=== PATIENT | male | born 1980 | race Caucasian/White ===

== ENCOUNTER 2018-11-08 11:16 | Emergency (ER) | payer OTHER ==
[2018-11-08 13:03] LABS: ABSOLUTE EOSINOPHILS # (AUTO) 0.2 10^3/uL (0.0-0.6); ABSOLUTE LYMPHOCYTES (AUTO) 2.4 10^3/uL (0.5-4.7); ABSOLUTE MONOCYTES (AUTO) 0.6 10^3/uL (0.1-1.4); ABSOLUTE NEUT (AUTO) 4.9 10^3/uL (1.7-8.2); BASOPHILS % (AUTO) 0.6 % (0-2); EOSINOPHILS % (AUTO) 2.1 % (0-6); HEMATOCRIT 49.2 % (37.9-51.0); HEMOGLOBIN 16.7 g/dL (13.5-17.0); LYMPHOCYTES % (AUTO) 29.5 % (13-45); MEAN CORPUSCULAR HEMOGLOBIN 30.3 pg (27.0-33.4); MEAN CORPUSCULAR VOLUME 89 fl (80-97); MONOCYTES % (AUTO) 7.4 % (3-13); PLATELET COUNT 279 10^3/uL (150-450); RED BLOOD COUNT 5.51 10^6/uL (4.35-5.55); RED CELL DISTRIBUTION WIDTH 13.1 % (11.5-14.0); SEGMENTED NEUTROPHILS % (AUTO) 60.4 % (42-78); TOTAL CELLS COUNTED % (AUTO) 100 %; WHITE BLOOD COUNT 8.2 10^3/uL (4.0-10.5)
--- NOTE | 2018-11-08 13:03 | ER Document Report ---
ED Psych Disorder / Suicide - General Chief Complaint: Suicidal Ideation Stated Complaint: PSYCH EVAL Time Seen by Provider: 11/08/18 11:53 Notes: 37-year-old male the emergency department chief complaint of suicidal ideation. Patient has long-standing history of suicidal ideation. [employer]. [employer]. Multiple admissions to 4 alpha at [facility]. In arguments with his . Took a razor blade to his wrist today. Police arrived. Patient was placed on IVC and transported immediately. Patient also states that he took a handful of Klonopin as well as ibuprofen. TRAVEL OUTSIDE OF THE [place] IN LAST 30 DAYS: No - HPI Patient complains to provider of: Suicidal ideation, Suicidal plan, Suicidal attempt, Self injury Onset: Just prior to arrival Severity: Moderate Pain Level: Denies - Related Data Allergies/Adverse Reactions: No Known Allergies Allergy (Unverified 06/26/11 19:12) Past Medical History - General Information source: Patient - Social History Smoking Status: Never Smoker Frequency of alcohol use: None Drug Abuse: None Lives with: Spouse/Significant other Family History: Reviewed & Not Pertinent Patient has suicidal ideation: Yes Patient has homicidal ideation: No - Medical History Notes: PTSD, depression Renal/ Medical History: Denies: Hx Peritoneal Dialysis Past Surgical History: Reports: Hx Orthopedic Surgery - Immunizations Hx Diphtheria, Pertussis, Tetanus Vaccination: Yes - < 5 years Review of Systems - Review of Systems Notes: Constitutional: denies: Chills, Diaphoresis, Fever, Malaise, Weakness EENT: denies: Eye discharge, Blurred vision, Tearing, Double vision, Nose congestion, Nose discharge, Throat swelling, Mouth pain Cardiovascular: denies: Palpitations, Heart racing, Orthopnea, Dyspnea, Chest pain Respiratory: denies: Cough, Hurts to breathe, Wheezing, Shortness of breath Gastrointestinal: denies: Abdominal pain, Diarrhea, Nausea, Vomiting, Black stools, bright red blood in stool Genitourinary: denies: Burning, Dysuria, Discharge, Frequency, Flank pain, Hematuria Musculoskeletal: denies: Joint pain, Joint swelling, Muscle pain, Muscle stiffness, back pain Hematologic/Lymphatic: denies: Anemia, Easy bleeding, Easy bruising, Blood clots Neurological/Psychological: denies: Confusion, Dementia, Loss of consciousness. +Depression, suicidal ideation Skin: No lesions, no masses, no skin breakdown, no abscesses. Self-inflicted laceration to the right wrist. Physical Exam - Vital signs Vitals: Temp Pulse Resp BP Pulse Ox 97.6 F 90 14 142/87 H 98 11/08/18 11:20 11/08/18 11:20 11/08/18 11:20 11/08/18 11:20 11/08/18 11:20 Interpretation: Normal - General General appearance: Appears well, Alert - HEENT Head: Normocephalic, Atraumatic Eyes: Normal Pupils: PERRL - Respiratory Respiratory status: No respiratory distress Chest status: Nontender Breath sounds: Normal Chest palpation: Normal - Cardiovascular Rhythm: Regular Heart sounds: Normal auscultation Murmur: No - Abdominal Inspection: Normal Distension: No distension Bowel sounds: Normal Tenderness: Nontender Organomegaly: No organomegaly - Back Back: Normal, Nontender - Extremities General upper extremity: Nontender, Normal color, Normal ROM, Normal temperature, Other - Laceration to the right wrist. Tendon function is intact. Sensation intact. No exposed tendons. No arterial lacerations. General lower extremity: Normal inspection, Nontender, Normal color, Normal ROM, Normal temperature, Normal weight bearing. No: Bryson's sign - Neurological Neuro grossly intact: Yes Cognition: Normal Orientation: AAOx4 Cathie Coma Scale Eye Opening: Spontaneous Cathie Coma Scale Verbal: Oriented Cathie Coma Scale Motor: Obeys Commands Cathie Coma Scale Total: 15 Speech: Normal Motor strength normal: LUE, RUE, LLE, RLE Sensory: Normal - Psychological Associated symptoms: Normal affect, Normal mood - Skin Skin Temperature: Warm Skin Moisture: Dry Skin Color: Normal, Other - There is a 4 cm linear serrated laceration to the right wrist. Moderate amount of bleeding. No tendon involvement. Full range of motion of the fingers. Course - Re-evaluation Re-evalutation: 11/08/18 14:07 Laboratory 11/08/18 11/08/18 11/08/18 12:40 12:40 12:40 WBC 8.2 RBC 5.51 Hgb 16.7 Hct 49.2 MCV 89 MCH 30.3 MCHC 34.0 RDW 13.1 Plt Count 279 Seg Neutrophils % 60.4 Lymphocytes % 29.5 Monocytes % 7.4 Eosinophils % 2.1 Basophils % 0.6 Absolute Neutrophils 4.9 Absolute Lymphocytes 2.4 Absolute Monocytes 0.6 Absolute Eosinophils 0.2 Absolute Basophils 0.0 Sodium 143.4 Potassium 4.4 Chloride 105 Carbon Dioxide 25 Anion Gap 13 BUN 22 H Creatinine 1.18 Est GFR ( Amer) > 60 Est GFR (Non-Af Amer) > 60 Glucose 100 Calcium 10.6 H Total Bilirubin 0.7 Direct Bilirubin 0.3 Neonat Total Bilirubin Not Reportable Neonat Direct Bilirubin Not Reportable Neonat Indirect Bili Not Reportable AST 26 ALT 46 Alkaline Phosphatase 76 Total Protein 8.0 Albumin 4.8 Urine Color YELLOW Urine Appearance CLEAR Urine pH 5.0 Ur Specific [place] 1.018 Urine Protein NEGATIVE Urine Glucose (UA) NEGATIVE Urine Ketones NEGATIVE Urine Blood NEGATIVE Urine Nitrite NEGATIVE Urine Bilirubin SMALL H Urine Urobilinogen 4.0 H Ur Leukocyte Esterase NEGATIVE Urine WBC (Auto) 0 Urine RBC (Auto) 0 Urine Mucus (Auto) RARE Urine Ascorbic Acid NEGATIVE Salicylates < 1.0 L Urine Opiates Screen Urine Methadone Screen Acetaminophen < 10 L Ur Barbiturates Screen Ur Phencyclidine Scrn Ur Amphetamines Screen U Benzodiazepines Scrn Urine Cocaine Screen U Marijuana (THC) Screen Serum Alcohol < 10 11/08/18 12:40 WBC RBC Hgb Hct MCV MCH MCHC RDW Plt Count Seg Neutrophils % Lymphocytes % Monocytes % Eosinophils % Basophils % Absolute Neutrophils Absolute Lymphocytes Absolute Monocytes Absolute Eosinophils Absolute Basophils Sodium Potassium Chloride Carbon Dioxide Anion Gap BUN Creatinine Est GFR ( Amer) Est GFR (Non-Af Amer) Glucose Calcium Total Bilirubin Direct Bilirubin Neonat Total Bilirubin Neonat Direct Bilirubin Neonat Indirect Bili AST ALT Alkaline Phosphatase Total Protein Albumin Urine Color Urine Appearance Urine pH Ur Specific [place] Urine Protein Urine Glucose (UA) Urine Ketones Urine Blood Urine Nitrite Urine Bilirubin Urine Urobilinogen Ur Leukocyte Esterase Urine WBC (Auto) Urine RBC (Auto) Urine Mucus (Auto) Urine Ascorbic Acid Salicylates Urine Opiates Screen NEGATIVE Urine Methadone Screen NEGATIVE Acetaminophen Ur Barbiturates Screen NEGATIVE Ur Phencyclidine Scrn NEGATIVE Ur Amphetamines Screen NEGATIVE U Benzodiazepines Scrn UNCONFIRMED POSITIVE Urine Cocaine Screen NEGATIVE U Marijuana (THC) Screen NEGATIVE Serum Alcohol Laceration was repaired. Labs are reviewed. No significant pathology. EKG unremarkable. Patient needs to be admitted to mental health facility again. Patient is on IV papers. More likely will transfer back over to the [facility]. Patient does not want this to happen however he is active duty and this seems appropriate. 11/08/18 14:08 11/08/18 14:23 Is medically cleared at this time. I believe patient is stable for transport to the [facility] or any inpatient psychiatric facility for further treatment. - Vital Signs Vital signs: Temp Pulse Resp BP Pulse Ox 97.6 F 90 16 142/87 H 98 11/08/18 11:21 11/08/18 11:21 11/08/18 11:21 11/08/18 11:21 11/08/18 11:21 - Laboratory Result Diagrams: 11/08/18 12:40 11/08/18 12:40 Laboratory results interpreted by me: 11/08/18 11/08/18 12:40 12:40 BUN 22 H Calcium 10.6 H Urine Bilirubin SMALL H Urine Urobilinogen 4.0 H Salicylates < 1.0 L Acetaminophen < 10 L - EKG Interpretation by Me EKG shows normal: Sinus rhythm, [place], Intervals, QRS Complexes, ST-T Waves Procedures - Laceration/Wound Repair Right Arm Time completed: 14:09 Wound length (cm): 4 Wound's Depth, Shape: Irregular. No: Into muscle Wound explored: Clean, No foreign body removed Wound Repaired With: Dermabond Post-procedure NV exam normal: Yes Complications: No Discharge - Discharge Clinical Impression: Suicide attempt Laceration of right wrist Qualifiers: Encounter type: initial encounter Qualified Code(s): S61.511A - Laceration without foreign body of right wrist, initial encounter Major depressive disorder Qualifiers: Major depression recurrence: recurrent Active/Remission status: currently active Major depression episode severity: moderate Qualified Code(s): F33.1 - Major depressive disorder, recurrent, moderate Benzodiazepine (tranquilizer) overdose Qualifiers: Encounter type: initial encounter Injury intent: intentional self-harm Qualified Code(s): T42.4X2A - Poisoning by benzodiazepines, intentional self- harm, initial encounter Condition: Good Disposition: [facility]
[2018-11-08 13:10] LABS: APPEARANCE,URINE CLEAR; BILIRUBIN,URINE SMALL (NEGATIVE); COLOR,URINE YELLOW; GLUCOSE, URINE NEGATIVE (NEGATIVE); KETONES,URINE NEGATIVE (NEGATIVE); LEUKOCYTE ESTERASE,URINE NEGATIVE (NEGATIVE); NITRITE,URINE NEGATIVE (NEGATIVE); PROTEIN,URINE NEGATIVE (NEGATIVE); URINE SPECIFIC GRAVITY 1.018
[2018-11-08 13:32] LABS: ALANINE AMINOTRANSFERASE 46 U/L (21-72); ALBUMIN 4.8 g/dL (3.5-5.0); ALKALINE PHOSPHATASE 76 U/L (38-126); ANION GAP 13 (5-19); ASPARTATE AMINO TRANSFERASE 26 U/L (17-59); BILIRUBIN,DIRECT 0.3 mg/dL (0.0-0.4); BILIRUBIN,TOTAL 0.7 mg/dL (0.2-1.3); BLOOD UREA NITROGEN 22 mg/dL (7-20); CALCIUM 10.6 mg/dL (8.4-10.2); CARBON DIOXIDE 25 mmol/L (22-30); CHLORIDE 105 mmol/L (98-107); GLUCOSE 100 mg/dL (75-110); POTASSIUM 4.4 mmol/L (3.6-5.0); SODIUM 143.4 mmol/L (137-145)
[2018-11-08 13:39] LABS: ACETAMINOPHEN < 10 ug/mL (10-30); ALCOHOL < 10 mg/dL (NONE DETECTED); SALICYLATE < 1.0 mg/dL (2.0-20.0)
[2018-11-08 13:40] LABS: URINE AMPHETAMINES SCREEN NEGATIVE; URINE BARBITURATES SCREEN NEGATIVE; URINE BENZODIAZEPINES SCREEN UNCONFIRMED POSITIVE; URINE COCAINE SCREEN NEGATIVE; URINE MARIJUANA (THC) SCREEN NEGATIVE; URINE METHADONE SCREEN NEGATIVE; URINE PHENCYCLIDINE SCREEN NEGATIVE
--- NOTE | 2018-11-08 13:48 | PSYCHOLOGICAL NOTE ---
Psych Note - Psych Note Date seen by psych provider: 11/08/18 Time seen by psych provider: 12:15 - 1225 Psych Note: Reason for Consult: suicidal ideation with attempt consent permissions: Patient's Pt presents via EMS with c/o suicidal ideation with a laceration to the right forearm and taking medication not prescribed to the pt. Pt reports marital issues, work issues, PTSD, insomnia, and OCD have contributed to these thoughts. Pt reports taking 7-8 800mg Ibuprofen and videoing himself of taking medication, pt sent video to spouse. Pt has vomited x1 since taking Ibuprofen. Pt also reported taking more Klonopin than prescribed to help with his nerves. EMS reports 2inch laceration to right arm with controlled bleeding, bandage applied on scene. Patient asked to see . Clinician requested the patient's wait so patient can speak with clinician first. Patient reports he wants talk to his . He states he needs to talk about "what is going on." He disclosed he has been owrried about his because she did not come home last night and he need to make sure she is ok. He continued to disclose he is retired and has no job and his is his only support. Clinician allowed a 5 minute observed visit so patient can see his is a lright. Both patient and agree to request no to discuss stressors and it is explained the visit with be both observed by clinician and will be ended if the conversation becomes too emotional or inappropriate; both agree and are comfortable with plan. Patient demonstrates difficulties in following requests and immediately starts to ask his where she was last night and why she has not contacted him. Patient's attempted to maintain the calm conversation; however, the patient continues to question his and telling her he needs her and can not live with out her. Clinician ends visit. Behavior health team received collateral from patient's . She reports the patient has been diagnosed with PTSD and depression for 8 years. She reports that a year ago he attempted to overdose twice that resulted in needing to stay in for alpha both times. She reports that approximately 6 months ago she asked for a divorce. She reports that he became upset because she had to travel for work yesterday. She discloses that he sits at home and just thinks and starts fabricating ideas in his head so he starts texting her. She is unable to respond immediately to many of his messages because of her work being in meetings which resulted at the patient becoming angry. She reports that today he sent her a video of him taking a handful of medication and slitting his wrists. Patient has been having difficulty with the shift in her being the primary breadwinner. The patient EAS is January 16 and he is currently on terminal. Patient is alert and orientated to person, place time and circumstance. mood and affect is flat. patient presents after intentional overdose and cutting his wrist. Delusions are absent and behaviour is congruent with an intact reality based presentation ( ie organized and linear thought processes). Thought content is very focused on his and stressors and unable to re-direct. Eye contact is poor. Conversational speech is slightly monotone. Intellectual abilities appear to be within the average range. Attention and concentration is poor. Insight, judgment, impulse control is poor No medication recommendations at this time PTSD per history provided by patient's Major depressive disorder per history provided by patient's Impression/plan: Patient is recommended for IVC. Patient presents to [facility] ED after intentional overdose and cutting his wrists. Patient has 2 previous intentional overdoses last year. He has been from his for the last 6 months. Today he sent his a video showing him overdosing on medication and cutting his wrist. Patient continues to demonstrate little insight into his actions and current relationship with his in front of clinician wanting to talk about his relationship, not understanding they are , and states he is unable to live without her. 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 patient has been accepted by [facility] by Dr. Arnoldo Cruz; transportation has been requested. Dr. Barkley was consulted and the care management of this patient; attending physicians in agreement with recommendations and disposition.
[2018-11-08 16:28] VITALS: BP 140/80
--- NOTE | 2018-11-08 17:38 | EKG REPORT ---
SEVERITY:- NORMAL ECG - SINUS RHYTHM : Confirmed by: Chante Stanton 08-Nov-2018 17:37:24
== END 2018-11-08 16:30 ==
LOC: ER 11:16
PROC: 0HQDXZZ Repair Right Lower Arm Skin, External Approach (ICD-10-PCS; principal; 2018-11-08)
DX: T42.4X2A Poisoning by benzodiazepines, intentional self-harm, initial encounter (principal); T39.312A Poisoning by propionic acid derivatives, intentional self-harm, initial encounter; S61.511A Laceration without foreign body of right wrist, initial encounter; F33.1 Major depressive disorder, recurrent, moderate; Y92.9 Unspecified place or not applicable; X83.8XXA Intentional self-harm by other specified means, initial encounter
CPT/HCPCS: 36415; 80053; 80307; 81001; 85025; 93005; 93010; 99285

== ENCOUNTER 2018-11-13 15:49 | Emergency (ER) | payer OTHER ==
--- NOTE | 2018-11-13 16:44 | ER Document Report ---
ED Medical Screen (RME) - General Chief Complaint: Psych Problem Stated Complaint: IVC/WITH PAPERS Time Seen by Provider: 11/13/18 16:42 Mode of Arrival: Ambulatory Information source: Law Enforcement Notes: 37-year-old male presented to ED for IVC. He states he went to the police department to get his guns and a bunch of officers showed up told him that he had to come to the emergency room he was involuntarily committed. He states last week he threatened suicide and they had had his gets taken away from him he had to get a court date been no guns were released he went to pick him up today and the police stated that he has been IVC by Dr. Barkley. Patient states he does not know why he is involuntarily committed and the police man with him states he does not use there. I have greeted and performed a rapid initial assessment of this patient. A comprehensive ED assessment and evaluation of the patient, analysis of test results and completion of medical decision making process will be conducted by an additional ED providers. Dictation of this chart was performed using voice recognition software; therefore, there may be some unintended grammatical errors. TRAVEL OUTSIDE OF THE [place] IN LAST 30 DAYS: No - Related Data Allergies/Adverse Reactions: No Known Allergies Allergy (Verified 11/13/18 16:10) Past Medical History Renal/ Medical History: Denies: Hx Peritoneal Dialysis Past Surgical History: Reports: Hx Orthopedic Surgery - Immunizations Hx Diphtheria, Pertussis, Tetanus Vaccination: Yes - < 5 years Physical Exam - Vital signs Vitals: Temp Pulse Resp BP Pulse Ox 98.1 F 106 H 18 149/95 H 97 11/13/18 16:25 11/13/18 16:25 11/13/18 16:25 11/13/18 16:25 11/13/18 16:25 Course - Vital Signs Vital signs: Temp Pulse Resp BP Pulse Ox 98.1 F 106 H 18 149/95 H 97 11/13/18 16:25 11/13/18 16:25 11/13/18 16:25 11/13/18 16:25 11/13/18 16:25
[2018-11-13] MEDS ORDERED: GABAPENTIN 300 MG CAPSULE PO ONE (17:51)
[2018-11-13] MEDS ORDERED: LORAZEPAM INJ 2 MG/1 ML VIAL IV ONE (17:51)
[2018-11-13] MEDS ORDERED: BENZTROPINE MESYLATE INJ 2 MG/2 ML AMPULE IM STA (17:51)
[2018-11-13] MEDS ORDERED: OLANZAPINE INJ/PF 10 MG SDV IM ONE (17:51)
[2018-11-13 17:56] LABS: APPEARANCE,URINE CLEAR; BILIRUBIN,URINE NEGATIVE (NEGATIVE); COLOR,URINE YELLOW; GLUCOSE, URINE NEGATIVE (NEGATIVE); KETONES,URINE NEGATIVE (NEGATIVE); LEUKOCYTE ESTERASE,URINE NEGATIVE (NEGATIVE); NITRITE,URINE NEGATIVE (NEGATIVE); PROTEIN,URINE NEGATIVE (NEGATIVE); URINE SPECIFIC GRAVITY 1.015; UROBILINOGEN,URINE NEGATIVE mg/dL (<2.0)
[2018-11-13 18:10] LABS: URINE AMPHETAMINES SCREEN NEGATIVE; URINE BARBITURATES SCREEN UNCONFIRMED POSITIVE; URINE BENZODIAZEPINES SCREEN UNCONFIRMED POSITIVE; URINE COCAINE SCREEN NEGATIVE; URINE MARIJUANA (THC) SCREEN NEGATIVE; URINE METHADONE SCREEN NEGATIVE; URINE PHENCYCLIDINE SCREEN NEGATIVE
[2018-11-13] MEDS: BUSPIRONE HCL 10 MG TABLET PO SCH (18:11)
[2018-11-13] MEDS ORDERED: LORAZEPAM INJ 2 MG/1 ML VIAL IM ONE (18:17)
--- NOTE | 2018-11-13 18:20 | ER Document Report ---
ED General - General Chief Complaint: Psych Problem Stated Complaint: IVC/WITH PAPERS Time Seen by Provider: 11/13/18 16:42 Mode of Arrival: Ambulatory Notes: Patient is a 37-year-old male with history of PTSD, depression and anxiety that presents to the emergency department for chief complaint of suicidal ideations. Patient was recently seen in the emergency department for suicide attempt, patient had intentionally cut his wrist bilaterally, and his forehead. He denied ever having to do that in the past, states he is going through divorce and his leaving him. He states he is rather stressed out, he had his guns taken away from him, he did go to [facility] and was discharged home and was cleared at that time. He apparently went to the [facility]'s department to reclaim his firearms, but had made comments apparently stating that he was going to get his guns, and and at all or kill himself. This point the patient was IVC, [facility] department brought him to the emergency department. 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 He states he did something stupid the other day, and did not intentionally wish to harm himself, what just was very upset about everything that is going on. 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 Past Medical History: PTSD, depression, anxiety Past Surgical History: History of orthopedic surgery Social History: Patient admits to smoking cigarettes, occasional alcohol use, denies illicit drug use. Family History: Reviewed and noncontributory for presenting illness Allergies: Reviewed, see documented allergy list. REVIEW OF SYSTEMS: Other than noted above, the 12 point review of systems was reviewed with the patient and were negative, all pertinent findings are included in the HPI. PHYSICAL EXAMINATION: Vital signs reviewed, nursing noted reviewed. GENERAL: Patient appears rather anxious on exam, but no acute distress. HEAD: Normocephalic, superficial lacerations noted to the forehead EYES: Eyes appear normal, extraocular movements intact, sclera anicteric, conjunctiva are normal. ENT: nares patent, oropharynx clear without exudates. Moist mucous membranes. NECK: Normal range of motion, supple without lymphadenopathy LUNGS: Breath sounds clear to auscultation bilaterally and equal. No wheezes rales or rhonchi. HEART: Heart rate mildly tachycardic, regular rhythm, no audible murmur. ABDOMEN: Soft, nontender, normoactive bowel sounds. No rebound, guarding, or rigidity. No masses appreciated. EXTREMITIES: Nontender, good range of motion, no pitting or edema. NEUROLOGICAL: No focal neurological deficits. Moves all extremities spontaneously Motor and sensory grossly intact on exam. PSYCH: Patient has labile mood, appears agitated, and anxious on exam. SKIN: Warm, Dry, normal turgor, superficial lacerations noted to the right volar wrist that are perpendicular to the forearm, also noted on the left forearm, are parallel superficial lacerations noted, that appear to be healing on the volar aspect, there is also superficial lacerations noted to the forehead. TRAVEL OUTSIDE OF THE [place] IN LAST 30 DAYS: No - Related Data Allergies/Adverse Reactions: No Known Allergies Allergy (Verified 11/13/18 16:10) Past Medical History - General Information source: Law Enforcement - Social History Smoking Status: Never Smoker Frequency of alcohol use: None Drug Abuse: None Family History: Reviewed & Not Pertinent Patient has suicidal ideation: No Patient has homicidal ideation: No Renal/ Medical History: Denies: Hx Peritoneal Dialysis Past Surgical History: Reports: Hx Orthopedic Surgery - Immunizations Hx Diphtheria, Pertussis, Tetanus Vaccination: Yes - < 5 years Physical Exam - Vital signs Vitals: Temp Pulse Resp BP Pulse Ox 98.1 F 106 H 18 149/95 H 97 11/13/18 16:25 11/13/18 16:25 11/13/18 16:25 11/13/18 16:25 11/13/18 16:25 Course - Re-evaluation Re-evalutation: Patient seen and examined, vital signs reviewed. Medical screening testing was ordered including bloodwork, EKG, and toxicology. Results of testing were reviewed. Testing demonstrated elevation in the patient's creatinine, likely secondary to mild dehydration, patient is taking p.o. well, no indication for IV fluids at this time, he was noted to be positive for benzodiazepines, barbiturates, and opiates in his drug screen, negative for alcohol. Patient has been stable from a hemodynamic standpoint. Medication recommendations were given for the patient including starting him on Effexor and BuSpar, patient was given a single dose of IM Zyprexa 10 mg, and Ativan 2 mg IM, and I am Cogentin 1 mg. At this point I feel that the patient is medically cleared and can be further evaluated from a psychiatric standpoint for final disposition from the emergency department. Patient updated on plan of care. Laboratory 11/13/18 11/13/18 11/13/18 17:10 17:10 18:24 WBC 7.4 RBC 5.37 Hgb 16.4 Hct 47.9 MCV 89 MCH 30.5 MCHC 34.2 RDW 13.1 Plt Count 278 Seg Neutrophils % 56.3 Lymphocytes % 28.2 Monocytes % 7.9 Eosinophils % 7.0 H Basophils % 0.6 Absolute Neutrophils 4.2 Absolute Lymphocytes 2.1 Absolute Monocytes 0.6 Absolute Eosinophils 0.5 Absolute Basophils 0.0 Sodium Potassium Chloride Carbon Dioxide Anion Gap BUN Creatinine Est GFR ( Amer) Est GFR (Non-Af Amer) Glucose Calcium Total Bilirubin Direct Bilirubin Neonat Total Bilirubin Neonat Direct Bilirubin Neonat Indirect Bili AST ALT Alkaline Phosphatase Total Protein Albumin Urine Color YELLOW Urine Appearance CLEAR Urine pH 5.0 Ur Specific [place] 1.015 Urine Protein NEGATIVE Urine Glucose (UA) NEGATIVE Urine Ketones NEGATIVE Urine Blood NEGATIVE Urine Nitrite NEGATIVE Urine Bilirubin NEGATIVE Urine Urobilinogen NEGATIVE Ur Leukocyte Esterase NEGATIVE Urine WBC (Auto) 1 Urine RBC (Auto) 1 Urine Bacteria (Auto) TRACE Urine Mucus (Auto) RARE Urine Ascorbic Acid NEGATIVE Salicylates Urine Opiates Screen UNCONFIRMED POSITIVE Urine Methadone Screen NEGATIVE Acetaminophen Ur Barbiturates Screen UNCONFIRMED POSITIVE Ur Phencyclidine Scrn NEGATIVE Ur Amphetamines Screen NEGATIVE U Benzodiazepines Scrn UNCONFIRMED POSITIVE Urine Cocaine Screen NEGATIVE U Marijuana (THC) Screen NEGATIVE Serum Alcohol 11/13/18 18:24 WBC RBC Hgb Hct MCV MCH MCHC RDW Plt Count Seg Neutrophils % Lymphocytes % Monocytes % Eosinophils % Basophils % Absolute Neutrophils Absolute Lymphocytes Absolute Monocytes Absolute Eosinophils Absolute Basophils Sodium 141.7 Potassium 4.2 Chloride 102 Carbon Dioxide 26 Anion Gap 14 BUN 21 H Creatinine 1.50 H Est GFR ( Amer) > 60 Est GFR (Non-Af Amer) 53 L Glucose 145 H Calcium 10.2 Total Bilirubin 0.6 Direct Bilirubin 0.3 Neonat Total Bilirubin Not Reportable Neonat Direct Bilirubin Not Reportable Neonat Indirect Bili Not Reportable AST 25 ALT 37 Alkaline Phosphatase 81 Total Protein 7.8 Albumin 5.0 Urine Color Urine Appearance Urine pH Ur Specific [place] Urine Protein Urine Glucose (UA) Urine Ketones Urine Blood Urine Nitrite Urine Bilirubin Urine Urobilinogen Ur Leukocyte Esterase Urine WBC (Auto) Urine RBC (Auto) Urine Bacteria (Auto) Urine Mucus (Auto) Urine Ascorbic Acid Salicylates < 1.0 L Urine Opiates Screen Urine Methadone Screen Acetaminophen < 10 L Ur Barbiturates Screen Ur Phencyclidine Scrn Ur Amphetamines Screen U Benzodiazepines Scrn Urine Cocaine Screen U Marijuana (THC) Screen Serum Alcohol < 10 - Vital Signs Vital signs: Temp Pulse Resp BP Pulse Ox 98.1 F 106 H 18 149/95 H 97 11/13/18 16:25 11/13/18 16:25 11/13/18 16:25 11/13/18 16:25 11/13/18 16:25 - Laboratory Result Diagrams: 11/13/18 18:24 11/13/18 18:24 Laboratory results interpreted by me: 11/13/18 11/13/18 18:24 18:24 Eosinophils % 7.0 H BUN 21 H Creatinine 1.50 H Est GFR (Non-Af Amer) 53 L Glucose 145 H Salicylates < 1.0 L Acetaminophen < 10 L - EKG Interpretation by Me Additional EKG results interpreted by me: EKG demonstrates sinus rhythm with a ventricular rate of 88 bpm, normal axis, normal intervals, no evidence of acute ischemia in this EKG, this is compared with a prior EKG from 11/08/2018, without significant change. Discharge - Discharge Clinical Impression: Suicidal ideation Major depressive disorder Qualifiers: Major depression recurrence: unspecified whether recurrent Active/Remission status: remission status unspecified Qualified Code(s): F32.9 - Major depressive disorder, single episode, unspecified Condition: Stable Disposition: PSYCH HOSP/UNIT
[2018-11-13] MEDS: VENLAFAXINE HCL 25 MG TABLET PO SCH (18:22)
--- NOTE | 2018-11-13 18:36 | EKG REPORT ---
SEVERITY:- BORDERLINE ECG - SINUS RHYTHM BORDERLINE T ABNORMALITIES, INFERIOR LEADS : Confirmed by: iJna Joy MD 13-Nov-2018 18:35:59
[2018-11-13 18:41] LABS: ABSOLUTE EOSINOPHILS # (AUTO) 0.5 10^3/uL (0.0-0.6); ABSOLUTE LYMPHOCYTES (AUTO) 2.1 10^3/uL (0.5-4.7); ABSOLUTE MONOCYTES (AUTO) 0.6 10^3/uL (0.1-1.4); ABSOLUTE NEUT (AUTO) 4.2 10^3/uL (1.7-8.2); BASOPHILS % (AUTO) 0.6 % (0-2); HEMATOCRIT 47.9 % (37.9-51.0); HEMOGLOBIN 16.4 g/dL (13.5-17.0); LYMPHOCYTES % (AUTO) 28.2 % (13-45); MEAN CORPUSCULAR HEMOGLOBIN 30.5 pg (27.0-33.4); MEAN CORPUSCULAR HGB CONC 34.2 g/dL (32.0-36.0); MEAN CORPUSCULAR VOLUME 89 fl (80-97); MONOCYTES % (AUTO) 7.9 % (3-13); PLATELET COUNT 278 10^3/uL (150-450); RED BLOOD COUNT 5.37 10^6/uL (4.35-5.55); RED CELL DISTRIBUTION WIDTH 13.1 % (11.5-14.0); SEGMENTED NEUTROPHILS % (AUTO) 56.3 % (42-78); TOTAL CELLS COUNTED % (AUTO) 100 %; WHITE BLOOD COUNT 7.4 10^3/uL (4.0-10.5)
[2018-11-13 19:10] LABS: ALANINE AMINOTRANSFERASE 37 U/L (21-72); ALKALINE PHOSPHATASE 81 U/L (38-126); ANION GAP 14 (5-19); ASPARTATE AMINO TRANSFERASE 25 U/L (17-59); BILIRUBIN,DIRECT 0.3 mg/dL (0.0-0.4); BILIRUBIN,TOTAL 0.6 mg/dL (0.2-1.3); BLOOD UREA NITROGEN 21 mg/dL (7-20); CALCIUM 10.2 mg/dL (8.4-10.2); CARBON DIOXIDE 26 mmol/L (22-30); CHLORIDE 102 mmol/L (98-107); GLUCOSE 145 mg/dL (75-110); POTASSIUM 4.2 mmol/L (3.6-5.0); SODIUM 141.7 mmol/L (137-145); TOTAL PROTEIN 7.8 g/dL (6.3-8.2)
[2018-11-13 19:11] LABS: ACETAMINOPHEN < 10 ug/mL (10-30); ALCOHOL < 10 mg/dL (NONE DETECTED); SALICYLATE < 1.0 mg/dL (2.0-20.0)
--- NOTE | 2018-11-13 19:36 | PSYCHOLOGICAL NOTE ---
Psych Note - Psych Note Date seen by psych provider: 11/13/18 Psych Note: Diagnosis: SI with specific statement, and trying to obtain his means which would give access PTSD by History MDD by History Medication recommendations made by the psychiatric medical provider, Dr. Go MD., includes: Add Zyprexa 10MG IM Once Now Add Cegentin 1MG IM Once Now Add Effexor 37.5MG twice a day for depression/focus/energy Add Buspar 10MG twice a day for anxiety/calming effect/depression/sleep Impression/Plan: Recommendation to complete full IVC (patient came in on 24 Hour IVC Petition via Dr. Barkley from [facility]). He presented to [facility] today appearing to be under the influence as evidenced by dilated pupils, red sclera and labile mood. He presented to obtain his numerous firearms that had been confiscated 11/08/18 after SI via OD and cut wrist and was transferred from [facility] ED to [facility]. While in the lobby at [facility] he was on the telephone. [facility] received a phone call from a person saying they were the one on phone with him and he said he was going to put a pistol to his mouth when he got his firearms back. Consulted with Dr. Barkley who initiated IVC. ED Physician in agreement with recommendations.
[2018-11-14] MEDS: VENLAFAXINE HCL 25 MG TABLET PO SCH ×2 (10:16→18:30)
[2018-11-14] MEDS: BUSPIRONE HCL 10 MG TABLET PO SCH ×2 (10:16→18:31)
--- NOTE | 2018-11-14 15:32 | ER Document Report ---
Doctor's Note Notes: 11/14/18 15:30 Patient seen and examined. In short the patient had been involuntarily committed to [facility]. He was discharged. His guns have been taken away. He states that he was told that he could retrieve his guns yesterday. He went to do that. He was told that that could not possibly happen. I am also told that there was an anonymous report that the patient stated that once he got his guns back he stated he would "blow his brains out." The patient states this is not the truth. He denies any suicidal ideation. He states he does have a history of PTSD and significant anxiety. He would like to be allowed to either go back to [facility] or be discharged. At this time IVC is completed, patient has been accepted to another hospital. Per Dr. Barkley's request, the patient is not to be sent back to [facility]. The patient is very concerned about being in the backseat of a police car, asks if he can be "knocked out." Physical exam reveals a 37-year-old male, mildly agitated but no acute distress. He is cooperative with examiner, but tearful when he talks about being trapped in the car. Head is normocephalic and atraumatic. Pupils are equal and round, reactive to light. Heart is regular rate and rhythm, lungs are clear to auscultation bilaterally. Skin is warm and dry. Patient is still denying suicidality, but IVC is in place. He does not currently have access to guns, but certainly there is concern that he is still actively suicidal based on this anonymous complaint. I have been notified by psychiatry that the patient's transfer will not be able to happen until tomorrow morning. Patient will need medication for anxiety prior to transfer. We will continue to monitor.
[2018-11-14] MEDS ORDERED: OLANZAPINE 5 MG TABLET PO ONE (19:11)
[2018-11-14] MEDS ORDERED: BENZTROPINE MESYLATE 1 MG TABLET PO ONE (19:14)
--- NOTE | 2018-11-14 19:30 | PSYCHOLOGICAL NOTE ---
Psych Note - Psych Note Date seen by psych provider: 11/14/18 Psych Note: Diagnosis: SI with specific statement, and trying to obtain his means which would give access PTSD by History MDD by History Impression/Plan: Recommendation to maintain IVC. Patient has denied making SI statements however the person he was talking on the phone with while at [facility] yesterday trying to get his confiscated firearms back called [facility] and informed them he said he would eat the end of a pistol after he got his guns back. He also appeared under the influence given his dilated pupils, red sclera and mood lability. His UDS was positive for opiates, barbiturates and benzodiazepines, all which he is prescribed however in combination cause a lethargic intoxication. Consulted with Dr. Barkley regarding the management and care of patient. ED Physician in agreement with recommendations.
[2018-11-15 06:23] VITALS: BP 113/96
== END 2018-11-15 08:40 ==
LOC: ER 15:49
DX: F29 Unspecified psychosis not due to a substance or known physiological condition (principal); R45.851 Suicidal ideations; F43.10 Post-traumatic stress disorder, unspecified
CPT/HCPCS: 93005; 99285; 96372; 36415; 80307 ×4; 85025; 80053; 81001; 93010; J3490 ×2; J0515; J2060

== ENCOUNTER → 2020-02-13 | Outpatient (CLI) | payer OTHER ==
--- NOTE | 2020-02-13 08:53 | RADIOLOGY REPORT (SQ) ---
EXAM DESCRIPTION: CT HEAD WITHOUT IMAGES COMPLETED DATE/TIME: 02/13/2020 7:28 am REASON FOR STUDY: HEADACHE (R51) COMPARISON: None. TECHNIQUE: Axial images acquired through the brain without intravenous contrast. Images reviewed wi th bone, brain and subdural windows. Additional sagittal and coronal reconstructions were generated. Images stored on PACS. All CT scanners at this facility use dose modulation, iterative reconstruction, and/or weight based d osing when appropriate to reduce radiation dose to as low as reasonably achievable (ALARA). [facility]: Dose Right [facility]: CareDose [facility]: Dose Right [facility]: Teradose 4D [facility]: [email or web address] RADIATION DOSE: CT Rad equipment meets quality standard of care and radiation dose reduction techniq ues were employed. CTDIvol: 48.7 mGy. DLP: 931 mGy-cm. mGy. LIMITATIONS: None. FINDINGS: VENTRICLES: Normal size and contour. CEREBRUM: No masses. No hemorrhage. No midline shift. No evidence for acute infarction. Normal gra y/white matter differentiation. No areas of low density in the white matter. CEREBELLUM: No masses. No hemorrhage. No alteration of density. No evidence for acute infarction. EXTRAAXIAL SPACES: No fluid collections. No masses. ORBITS AND GLOBE: No intra- or extraconal masses. Normal contour of globe without masses. CALVARIUM: No fracture. PARANASAL SINUSES: No fluid or mucosal thickening. SOFT TISSUES: No mass or hematoma. OTHER: No other significant finding. IMPRESSION: NORMAL BRAIN CT WITHOUT CONTRAST. EVIDENCE OF ACUTE STROKE: NO. COMMENT: Quality ID # [id number]: Final reports with documentation of one or more dose reduction techniques (e.g., Automated exposure control, adjustment of the mA and/or kV according to patient size, use of iterative reconstruction technique) TECHNICAL DOCUMENTATION: JOB ID: [id number] 2010 [employer]- All Rights Reserved Reading location - IP/workstation name: [email or web address]
== END ==
LOC: RAD 07:00
PROVIDERS: ATTEND Family Medicine
DX: R51 Headache (principal)
CPT/HCPCS: 70450